=== PATIENT | male | born 1960 | race Caucasian/White ===

== ENCOUNTER 2016-11-29 21:07 | Emergency (ER) | payer OTHER ==
[~2016-11-29] VITALS: Ht 172.7 cm; Wt 70.3 kg
--- NOTE | ~2016-11-29 | EKG ---
[place] [address] 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
[2016-11-29 21:24] LABS: ABSOLUTE NEUTROPHILS 3.4 thou/uL (1.4-8.2); BASOPHILS 0.7 % (0.0-2.0); EOSINOPHILS 6.1 % (0.0-3.0); HEMOGLOBIN 14.6 gm/dL (14.0-18.0); LYMPHOCYTES 40.8 % (24.0-44.0); MANUAL DIFF NO; MCH 29.8 pg (26.0-34.0); MCHC 34.8 g/dL (28.0-37.0); MCV 85.4 fL (80.0-100.0); MONOCYTES 7.9 % (1.0-8.0); PLATELET COUNT 183 thou/uL (150-400); POLYS 44.5 % (36.0-66.0); RBC 4.92 mil/uL (4.50-6.00); RDW 13.6 % (10.5-14.5); WBC 7.7 thou/uL (4.0-11.0)
[2016-11-29 21:30] LABS: ANION GAP 8 mmol/L (7-16); BUN 22 mg/dL (7-18); CALCIUM 9.1 mg/dL (8.5-10.1); CHLORIDE 106 mmol/L (98-107); CO2 28 mmol/L (21-32); GLUCOSE 114 mg/dL (74-106); POTASSIUM 3.8 mmol/L (3.5-5.1); SODIUM 142 mmol/L (136-145)
[2016-11-29 21:39] LABS: TROPONIN-I < 0.04 ng/mL (<0.04-0.07)
[2016-11-29 22:43] VITALS: BP 122/68
== END 2016-11-29 22:47 | disposition home or self-care (01) ==
LOC: ER 21:07
PROVIDERS: Emergency Medicine
DX: R07.9 Chest pain, unspecified (principal); Z91.041 Radiographic dye allergy status

== ENCOUNTER → 2016-12-26 | Outpatient (CLI) | payer OTHER | LOC: RAD 06:45 → SPEECH 12:51 → RAD 12:51 → MRI 12:51 | DX: M50.30 Other cervical disc degeneration, unspecified cervical region (principal); R13.12 Dysphagia, oropharyngeal phase; R47.02 Dysphasia ==